=== PATIENT | male | born 1970 | race Caucasian/White ===

== ENCOUNTER 2016-12-06 15:24 | Emergency (ER) | payer BC ==
[~2016-12-06] VITALS: Ht 170.2 cm; Wt 93.5 kg
[~2016-12-06 15:24] MED LIST: CYCL-319 PO; IBUP800T25 PO
[2016-12-06 15:29] VITALS: Ht 170.2 cm; Wt 93.5 kg
[2016-12-06] MEDS ORDERED: SOD CHLORIDE 0.9% 1,000 ML IV STA (19:41)
[2016-12-06] MEDS ORDERED: KETOROLAC 15 MG INJ IV STA (19:41)
[2016-12-06 19:45] VITALS: TEMP 98.5
--- NOTE | 2016-12-06 19:51 | ERD ---
ER Documentation Chief Complaint Chief Complaint CHEST PAIN RADIATES TO BACK SINCE YESTERDAY HPI 46-year-old man complains of sharp nonradiating pain is intermittent and lasts for a few minutes each episode. He denies having personal risk factors or family history for early heart disease. He denies cough, no fevers or chills, no vomiting or diarrhea. Patient states he is a first time he has had these symptoms. ROS All systems reviewed and are negative except as per history of present illness. Medications Home Meds Active Scripts Mag Hydrox/Al Hydrox/Simeth (Maalox Advanced Suspension) 355 Ml Oral.susp, 2 TSP PO TID for PAIN, #24 OZ Prov:RIGO CHANEY MD 12/06/16 Ibuprofen* (Ibuprofen*) 600 Mg Tablet, 600 MG PO Q8 for PAIN AND/OR INFLAMMATION , #30 TAB Prov:RIGO CHANEY MD 12/06/16 Reported Medications Lisinopril* (Lisinopril*) 5 Mg Tablet, 5 MG PO DAILY, #30 TAB 12/06/16 Metformin Hcl* (Metformin Hcl*) 500 Mg Tablet, 500 MG PO WITH BREAKFAST DINNE, # 60 TAB 12/06/16 Discontinued Scripts Cyclobenzaprine Hcl* (Cyclobenzaprine Hcl*) 10 Mg Tablet, 10 MG PO TID, #15 TAB Prov:AMANDA CATES DO 10/14/14 Ibuprofen* (Motrin*) 800 Mg Tab, 800 MG PO Q6H Y for PAIN AND OR ELEVATED TEMP, #30 TAB Prov:AMANDA CATES DO 10/14/14 Allergies Allergies: Coded Allergies: No Known Allergy (Unverified , 12/06/16) PMhx/Soc None Medical and Surgical Hx: pt denies Surgical Hx History of Surgery: No Anesthesia Reaction: No Hx Neurological Disorder: No Hx Respiratory Disorders: No Hx Cardiac Disorders: Yes (htn, hld) Hx Psychiatric Problems: No Hx Miscellaneous Medical Probl: Yes (dm) Hx Alcohol Use: No Hx Substance Use: No Hx Tobacco Use: No Smoking Status: Never smoker FmHx Family History: No diabetes Physical Exam Vitals Vital Signs Date Time Temp Pulse Resp B/P Pulse Ox O2 Delivery O2 Flow Rate FiO2 12/06/16 21:37 79 16 128/72 98 Room Air 12/06/16 19:45 98.5 88 18 152/95 99 Room Air 12/06/16 15:29 98.4 71 16 140/91 98 Physical Exam GENERAL: Well-developed, well-nourished, well-hydrated, in no apparent distress , looks nontoxic in appearance HEENT: Moist mucous membranes, pink conjunctiva, no cervical spine tenderness or step-off deformities, no goiter, no jaundice or icterus, extraocular movements intact without pain. No submandibular induration, and no pharyngeal erythema NEURO: Alert and oriented 3, cranial nerves II through XII intact bilaterally, pupils equal round reactive to light, no focal deficits or facial asymmetry, sensation intact distally Strength 5/5 in upper and lower extremities bilaterally CARDIAC: Regular rate and rhythm, no murmurs rubs or gallops LUNGS: Clear bilaterally no wheezing crackles or stridor ABDOMEN: Soft nontender, no guarding, no rigidity, no rebound, no psoas sign no obturator sign. Normoactive bowel sounds SKIN: Warm and dry to touch, no abrasions, contusions, or hematomas, no lacerations, no ecchymosis, no target lesions, and without ulcers EXTREMITIES: No clubbing cyanosis or edema, calves are bilaterally symmetrical, no Homans sign, no popliteal cord sign. Distal pulses equal and bilateral PSYCH: Normal affect without agitation or irritability Result Diagram: 12/06/16194212/06/161942 Results 24 hrs Laboratory Tests Test 12/06/16 19:43 White Blood Count 7.410^3/ul Red Blood Count 5.0510^6/ul Hemoglobin 14.5g/dl Hematocrit 41.7% Mean Corpuscular Volume 82.6fl Mean Corpuscular Hemoglobin 28.7pg Mean Corpuscular Hemoglobin Concent 34.8g/dl Red Cell Distribution Width 13.0% Platelet Count 14702^3/UL Mean Platelet Volume 11.5fl Neutrophils % 50.5% Lymphocytes % 38.6% Monocytes % 8.5% Eosinophils % 1.5% Basophils % 0.5% Nucleated Red Blood Cells % 0.0/100WBC Neutrophils # 3.710^3/ul Lymphocytes # 2.910^3/ul Monocytes # 0.610^3/ul Eosinophils # 0.110^3/ul Basophils # 0.010^3/ul Nucleated Red Blood Cells # 0.010^3/ul Sodium Level 144mmol/L Potassium Level 4.0mmol/L Chloride Level 105mmol/L Carbon Dioxide Level 26mmol/L Anion Gap 17 Blood Urea Nitrogen 23mg/dl Creatinine 1.11mg/dl Glucose Level 173mg/dl Calcium Level 9.6mg/dl Total Bilirubin 0.5mg/dl Direct Bilirubin 0.00mg/dl Indirect Bilirubin 0.5mg/dl Aspartate Amino Transf (AST/SGOT) 33IU/L Alanine Aminotransferase (ALT/SGPT) 92IU/L Alkaline Phosphatase 64IU/L Troponin I < 0.012ng/ml Total Protein 8.8g/dl Albumin 5.3g/dl Globulin 3.50g/dl Albumin/Globulin Ratio 1.51 Lipase 149U/L Current Medications Medications (Trade) Dose Ordered Sig/Kash Route PRN Reason Start Time Stop Time Status Last Admin Dose Admin Sodium Chloride (NS) 1,000 ml @ 1,000 mls/hr Q1H STAT IV 12/06/16 19:41 12/06/16 20:40 DC 12/06/16 19:41 Ketorolac Tromethamine (Toradol) 15 mg ONCE STAT IV 12/06/16 19:41 12/06/16 19:42 DC 12/06/16 19:41 Alprazolam (Xanax) 0.5 mg ONCE ONCE PO 12/06/16 20:00 12/06/16 20:01 DC 12/06/16 20:51 Procedures/MDM IV line was established patient was placed on monitoring specialist rhythm strip revealed a sinus rhythm at about 70 bpm with upright P and T waves. Patient was afebrile Chest X-ray 1V Interpreted by me: Soft Tissue: No acute abnormalities Bones: No acute abnormalities Mediastinum/Cardiac Silhouette/Lungs: No acute abnormalities EKG performed, read by me: 72 bpm, normal sinus rhythm, normal axis, no acute ST segment changes, narrow QRS complex, with good R-wave progression in precordial leads. I administered 1 L normal saline intravenously, Toradol 15 mg IV 1, alprazolam 0.5 mg p.o. with good effect. CBC and electrolytes are normal, liver function tests were normal, troponin was negative. Differential diagnoses considered, included but not limited to acute coronary syndrome, pulmonary embolism, aortic dissection, abdominal aortic aneurysm, sepsis, stroke, meningitis, encephalitis, pneumonia, appendicitis, cholecystitis , bowel obstruction, pyelonephritis, nephrolithiasis, cystitis, as well as metabolic, hematologic, and electrolyte abnormalities. As well as abscess, cellulitis, fractures, and dislocations. Patient feels much better at this time, and vital signs are normal, symptoms have improved. I did give strict instructions to return to the ED if symptoms continue or worsen, patient will otherwise follow-up with primary care physician. Patient understood instructions and agreed to plan. Disclaimer: Inadvertent spelling and grammatical errors are likely due to EHR/ dictation software use and do not reflect on the overall quality of patient care. Also, please note that the electronic time recorded on this note does not necessarily reflect the actual time of the patient encounter. Departure Diagnosis: Primary Impression: Chest pain Chest pain type: unspecified Qualified Code: R07.9 - Chest pain, unspecified type Condition: RIGO Lua MD Dec 06, 2016 19:51
[2016-12-06] MEDS ORDERED: ALPRAZOLAM 0.25 MG TAB PO ONE (20:00)
[2016-12-06 20:09] LABS: BASOPHILS % 0.5 % (0.0-2.0); EOSINOPHILS # 0.1 10^3/ul (0.0-0.5); EOSINOPHILS % 1.5 % (0.0-7.0); HEMATOCRIT 41.7 % (42.0-52.0); HEMOGLOBIN 14.5 g/dl (14.0-18.0); LYMPHOCYTES # 2.9 10^3/ul (0.8-2.9); LYMPHOCYTES % 38.6 % (15.0-51.0); MEAN CORPUSCULAR HEMOGLOBIN 28.7 pg (29.0-33.0); MEAN CORPUSCULAR HGB CONC 34.8 g/dl (32.0-37.0); MEAN CORPUSCULAR VOLUME 82.6 fl (82.0-101.0); MEAN PLATELET VOLUME 11.5 fl (7.4-10.4); MONOCYTE # 0.6 10^3/ul (0.3-0.9); MONOCYTES % 8.5 % (0.0-11.0); NEUTROPHIL # 3.7 10^3/ul (1.6-7.5); NEUTROPHILS % 50.5 % (39.0-77.0); PLATELET COUNT 176 10^3/UL (140-415); RED BLOOD COUNT 5.05 10^6/ul (4.70-6.10); WHITE BLOOD COUNT 7.4 10^3/ul (4.8-10.8)
[2016-12-06 20:25] LABS: ALANINE AMINOTRANSFERASE 92 IU/L (13-69); ALBUMIN 5.3 g/dl (3.3-4.9); ALBUMIN/GLOBULIN RATIO 1.51; ALKALINE PHOSPHATASE 64 IU/L (42-121); ANION GAP 17 (8-16); ASPARTATE AMINO TRANSFERASE 33 IU/L (15-46); BILIRUBIN,INDIRECT 0.5 mg/dl (0-1.1); BILIRUBIN,TOTAL 0.5 mg/dl (0.2-1.3); BLOOD UREA NITROGEN 23 mg/dl (7-20); CALCIUM 9.6 mg/dl (8.4-10.2); CARBON DIOXIDE 26 mmol/L (21-31); CHLORIDE 105 mmol/L (97-110); CREATININE 1.11 mg/dl (0.61-1.24); GLUCOSE 173 mg/dl (70-220); SODIUM 144 mmol/L (135-144); TOTAL PROTEIN 8.8 g/dl (6.1-8.1)
[2016-12-06 20:37] LABS: TROPONIN-I < 0.012 ng/ml (0.00-0.12)
--- NOTE | 2016-12-06 20:47 | RADRPT ---
PROCEDURE: XR Chest. CLINICAL INDICATION: Abdominal pain. TECHNIQUE: Single frontal view. COMPARISON: None. FINDINGS: The lungs are clear. The heart size is normal. There is no pleural effusion. There is no pneumothorax. IMPRESSION: 1. Normal chest radiograph. RPTAT: QQ .Ochoa Altman MD, Date Time Electronically viewed and signed by .Ochoa Altman MD, on 12/06/2016 20:46 .R/
[2016-12-06] MEDS ORDERED: METF500T4 PO (21:08)
[2016-12-06] MEDS ORDERED: LISI-313 PO (21:09)
[2016-12-06] MEDS ORDERED: MAG355OR14 PO (21:22)
[2016-12-06] MEDS ORDERED: IBUP-1542 PO (21:22)
[2016-12-06 21:37] VITALS: BP 128/72; PULSE 79; RESP 16
== END 2016-12-06 21:39 | disposition home or self-care (01) ==
LOC: E/R 15:24
DX: R07.9 Chest pain, unspecified (principal); I10 Essential (primary) hypertension; E11.9 Type 2 diabetes mellitus without complications; Z79.84 Long term (current) use of oral hypoglycemic drugs
CPT/HCPCS: 36415; 71010; 80053; 83690; 84484; 85025; 93005; 96374; J1885; J7030; Z7502; Z7610